=== PATIENT | male | born 1935 | race Caucasian/White ===

== ENCOUNTER → 2016-10-16 | Outpatient (CLI) | payer MEDICARE, MEDICAID | LOC: OD 11:56 | PROVIDERS: ATTEND Family Medicine | DX: M54.5 Low back pain (principal); M51.36 Other intervertebral disc degeneration, lumbar region | CPT/HCPCS: 72110; 74000 ==

== ENCOUNTER 2020-04-19 15:39 | Emergency (ER) | payer MEDICARE, MEDICAID ==
[2020-04-19 16:20] LABS: ABSOLUTE EOSINOPHILS # (AUTO) 0.1 10^3/uL (0.0-0.6); ABSOLUTE LYMPHOCYTES (AUTO) 0.8 10^3/uL (0.5-4.7); ABSOLUTE MONOCYTES (AUTO) 0.5 10^3/uL (0.1-1.4); ABSOLUTE NEUT (AUTO) 3.3 10^3/uL (1.7-8.2); BASOPHILS % (AUTO) 0.6 % (0-2); EOSINOPHILS % (AUTO) 2.9 % (0-6); HEMATOCRIT 28.8 % (37.9-51.0); HEMOGLOBIN 10.2 g/dL (13.5-17.0); LYMPHOCYTES % (AUTO) 16.3 % (13-45); MEAN CORPUSCULAR HEMOGLOBIN 36.1 pg (27.0-33.4); MEAN CORPUSCULAR HGB CONC 35.3 g/dL (32.0-36.0); MEAN CORPUSCULAR VOLUME 102 fl (80-97); MONOCYTES % (AUTO) 10.6 % (3-13); PLATELET COUNT 128 10^3/uL (150-450); RED BLOOD COUNT 2.82 10^6/uL (4.35-5.55); RED CELL DISTRIBUTION WIDTH 14.5 % (11.5-14.0); SEGMENTED NEUTROPHILS % (AUTO) 69.6 % (42-78); TOTAL CELLS COUNTED % (AUTO) 100 %; WHITE BLOOD COUNT 4.8 10^3/uL (4.0-10.5)
--- NOTE | 2020-04-19 16:42 | ER Document Report ---
ED General - General Chief Complaint: Urinary Problem Stated Complaint: URINATING BLOOD Time Seen by Provider: 04/19/20 16:10 Primary Care Provider: PRACHI DENNY MD [ACTIVE STAFF] - Follow up as needed Mode of Arrival: Ambulatory Information source: Patient Notes: Patient is an 85-year-old male coming in today with chief complaint of rosa hematuria. 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 Evidently things were going well. The nephrostomy tube was capped off by the patient's local urologist in [place]. Today around lunchtime, the patient started having rosa bright red hematuria. He had this for 4 episodes. He is not having any pain. He is not having any trouble passing his urine. No fevers or chills. No nausea or vomiting. He takes a half of an aspirin daily. TRAVEL OUTSIDE OF THE [place] IN LAST 30 DAYS: No Past Medical History - Social History Smoking Status: Unknown if Ever Smoked Family History: Reviewed & Not Pertinent Patient has homicidal ideation: No Review of Systems - Review of Systems Notes: Constitutional: No fevers. No chills. EENT: No eye redness. No eye pain. No ear pain. No sore throat. Cardiovascular: No chest pain. No palpitations. Respiratory: No cough. No shortness of breath. No respiratory distress. Gastrointestinal: No abdominal pain. No nausea, vomiting, or diarrhea. Genitourinary: Atraumatic. No lesions. No pain. No discharge. Positive for rosa hematuria Musculoskeletal: Atraumatic. No swelling. No deformities. Skin: No rash or lesions. Lymphatic: No swollen lymph nodes. Neurologic: No headache. No syncope. Psychiatric: No suicidal or homicidal ideation. Physical Exam - Notes Notes: General: Well-developed, well-nourished. In no acute distress. Non-toxic appearing. Cardiac: Well-perfused. Regular rate and rhythm. No murmurs, rubs, or gallops. Pulmonary: No respiratory distress. No cyanosis. Bilateral lung leach are clear to auscultation. Abdominal: Non-distended. Non-rigid. Bowels sounds are present in all four quadrants. No guarding or rebound. HEENT: Head is atraumatic. Conjunctivae not reddened. No tearing. PERRL. EOMI. Orbits atraumatic. No periorbital swelling or erythema. Oropharynx is without erythema, swelling, or exudates. Neck: Supple. No adenopathy. No meningismus. Dermatologic: Warm with good turgor. No rash. Atraumatic. Chest: Atraumatic. No chest wall tenderness to palpation. Musculoskeletal: Moves all extremities well. No range of motion deficits. no muscular or joint tenderness. No paraspinal muscle tenderness. no midline spinal tenderness or step-off. Genitourinary: Examination deferred Neurologic: No gross neurologic deficits. Psychiatric: Normal mood. Course - Re-evaluation Re-evalutation: 04/19/20 16:41 Patient has stable vital signs. His hemoglobin is 10. We will get a KUB to make sure the nephrostomy tube is still in place. We will touch base either with a local urologist or with the urologist up in [place]. 04/19/20 18:56 Patient is feeling fine. He is still passing small amounts of urine with blood intermingled. Hemoglobin is 10. Call out to his local urologist on-call service. 04/19/20 18:[address] Anguiano who is on-call for the [facility] urology group. He recommends following up tomorrow. We will put a note in the chart. - Laboratory Result Diagrams: 04/19/20 15:52 04/19/20 15:52 Laboratory results interpreted by me: 04/19/20 04/19/20 04/19/20 15:52 15:52 17:35 RBC 2.82 L Hgb 10.2 L Hct 28.8 L MCV 102 H MCH 36.1 H RDW 14.5 H Plt Count 128 L Sodium 136.9 L Potassium 3.5 L Chloride 97 L Carbon Dioxide 34 H BUN 21 H Direct Bilirubin 0.5 H Total Protein 6.1 L Albumin 3.4 L Urine Protein >=500 H Urine Glucose (UA) 50 H Urine Blood SMALL H Discharge - Discharge Clinical Impression: Hematuria Qualifiers: Hematuria type: unspecified type Qualified Code(s): R31.9 - Hematuria, unspecified Condition: Good Disposition: HOME, SELF-CARE Instructions: Hematuria ([facility]) Additional Instructions: Please call Dr. Brush's office first thing in the morning. I spoke with Dr. Anguiano who thinks that they should be able to get you in tomorrow. If you get worse, return to emergency department Referrals: PRACHI DENNY MD [ACTIVE STAFF] - Follow up as needed
[2020-04-19 16:45] LABS: ALBUMIN 3.4 g/dL (3.5-5.0); ALKALINE PHOSPHATASE 74 U/L (38-126); ANION GAP 6 (5-19); ASPARTATE AMINO TRANSFERASE 26 U/L (17-59); BILIRUBIN,DIRECT 0.5 mg/dL (0.0-0.4); BILIRUBIN,TOTAL 0.6 mg/dL (0.2-1.3); BLOOD UREA NITROGEN 21 mg/dL (7-20); CARBON DIOXIDE 34 mmol/L (22-30); CHLORIDE 97 mmol/L (98-107); GLUCOSE 107 mg/dL (75-110); POTASSIUM 3.5 mmol/L (3.6-5.0); TOTAL PROTEIN 6.1 g/dL (6.3-8.2)
--- NOTE | 2020-04-19 17:02 | RADIOLOGY REPORT (SQ) ---
EXAM DESCRIPTION: KUB/ABDOMEN (SINGLE VIEW) IMAGES COMPLETED DATE/TIME: 04/19/2020 4:51 pm REASON FOR STUDY: check nephrostomy tube right side COMPARISON: None. NUMBER OF VIEWS: One view. TECHNIQUE: Supine radiographic image of the abdomen acquired. LIMITATIONS: None. FINDINGS: BOWEL GAS PATTERN: Normal bowel gas pattern. No dilated loops. CALCIFICATIONS: No suspicious calcifications. SOFT TISSUES: No gross mass or suggestion of organomegaly. HARDWARE: Right-sided percutaneous nephrostomy tube appears in expected location. Double-J ureteral stent also appears in expected location. Surgical clips overlie left hemiabdomen. BONES: No acute bony abnormality. Evidence of prior left femur fracture with dynamic intramedullary mc fixation hardware. Bilateral osteoarthritic change. Lumbar spondylosis. OTHER: Vascular calcifications. IMPRESSION: Right-sided percutaneous nephrostomy catheter and double-J ureteral stent appear in expe cted location on the frontal projection. TECHNICAL DOCUMENTATION: JOB ID: [id number] 2010 [employer]- All Rights Reserved Reading location - IP/workstation name: [email or web address]
[2020-04-19 17:34] LABS: INTERNATIONAL RATION (INR) 0.99; PROTHROMBIN TIME 13.3 SEC (11.4-15.4)
[2020-04-19 18:12] LABS: APPEARANCE,URINE CLOUDY; BILIRUBIN,URINE NEGATIVE (NEGATIVE); COLOR,URINE AMBER; GLUCOSE, URINE 50 mg/dL (NEGATIVE); KETONES,URINE NEGATIVE (NEGATIVE); LEUKOCYTE ESTERASE,URINE NEGATIVE (NEGATIVE); NITRITE,URINE NEGATIVE (NEGATIVE); PROTEIN,URINE >=500 mg/dL (NEGATIVE); URINE SPECIFIC GRAVITY 1.028; UROBILINOGEN,URINE NEGATIVE mg/dL (<2.0)
[2020-04-19 19:20] VITALS: BP 116/60
== END 2020-04-19 19:20 | disposition home or self-care (01) ==
LOC: ER 15:39
DX: R31.9 Hematuria, unspecified (principal); R39.198 Other difficulties with micturition; Z98.890 Other specified postprocedural states
CPT/HCPCS: 36415; 74018; 80053; 81001; 85025; 85610; 99284

== ENCOUNTER 2020-04-21 17:25 | Emergency (ER) | payer MEDICARE, MEDICAID ==
--- NOTE | 2020-04-21 18:23 | ER Document Report ---
ED Medical Screen (RME) - General Chief Complaint: Blood in Catheter Stated Complaint: URINARY ISSUES Time Seen by Provider: 04/21/20 18:15 Mode of Arrival: Wheelchair Information source: Patient Notes: 85-year-old male patient presents to the emergency department passing blood clots in his Brown bag. Patient reports Brown was placed yesterday at his urologist office. He is not sure why the Brown was placed. He does report recently having a nephrostomy tube that was removed. He was recently seen in this emergency department for hematuria. Patient reports he feels great has not had fever, chills or any other complaints. Exam deferred until patient is in a room however patient is alert, oriented and there is no acute distress noted. I have greeted and performed a rapid initial assessment of this patient. A comprehensive ED assessment and evaluation of the patient, analysis of test results and completion of the medical decision making process will be conducted by additional ED providers. I have specifically instructed the patient or family members with the patient to immediately return to any nursing staff should anything change in the patient's condition or with their chief complaint. TRAVEL OUTSIDE OF THE [place] IN LAST 30 DAYS: No - Related Data Allergies/Adverse Reactions: niacin Allergy (Verified 04/21/20 18:13) Past Medical History - Social History Chew tobacco use (# tins/day): No Drug Abuse: Bath salts Physical Exam - Vital signs Vitals: Temp Pulse Resp BP Pulse Ox 98.7 F 99 18 111/59 L 97 04/21/20 17:42 04/21/20 17:42 04/21/20 17:42 04/21/20 17:42 04/21/20 17:42 Course - Vital Signs Vital signs: Temp Pulse Resp BP Pulse Ox 98.7 F 99 18 111/59 L 97 04/21/20 17:42 04/21/20 17:42 04/21/20 17:42 04/21/20 17:42 04/21/20 17:42
--- NOTE | 2020-04-21 21:33 | ER Document Report ---
ED General - General Chief Complaint: Blood in Catheter Stated Complaint: URINARY ISSUES Time Seen by Provider: 04/21/20 18:15 Mode of Arrival: Wheelchair TRAVEL OUTSIDE OF THE [place] IN LAST 30 DAYS: No - HPI Quality of pain: Other - See HPI Context: This is a 85-year-old male presenting to the emergency department complaining of rosa red blood in his Brown catheter bag. Patient is status post resection of a mass on his right kidney by his urologist with [facility] urology group. Patient has been doing fine after the resection of the mass and had a nephrostomy tube in. Patient states that the mass was removed approximately 2 weeks ago that the nephrostomy tube is coming out. Patient was seen yesterday at his urologist office. Patient states that he had a Brown catheter placed but he is not exactly sure why. Patient states his main concern is the rosa blood and the pain he is having in his pelvic area when he is not passing urine th rough the Brown bag. Patient states that home health nurse was able to give him some relief earlier today by irrigating his Brown tube. Patient localizes the pain to his lower pelvis in the region of his bladder, rated at its worst as a 4 out of 5 but states he is not having any pain now. Patient describes the pain as aching. Patient denies fever, chills, back pain, shortness of breath, chest pain, upper abdominal pain. Patient denies loss of sense of taste or sense of smell. Patient denies history of Covid 19 infection or known exposure to Covid 19+ patients or patients under investigation for Covid. Associated symptoms: Other - See HPI Exacerbated by: Other - See HPI Relieved by: Other - See HPI - Related Data Allergies/Adverse Reactions: niacin Allergy (Verified 04/21/20 18:13) Past Medical History - General Information source: Patient - Social History Smoking Status: Current Every Day Smoker Chew tobacco use (# tins/day): No Drug Abuse: Bath salts Family History: Reviewed & Not Pertinent Patient has homicidal ideation: No Past Surgical History: Reports: Hx Kidney (Renal Surgery), Other - Renal mass resection Review of Systems - Review of Systems Constitutional: No symptoms reported EENT: No symptoms reported Cardiovascular: No symptoms reported Respiratory: No symptoms reported Gastrointestinal: No symptoms reported Genitourinary: Hematuria Male Genitourinary: Other - Pelvic pain Musculoskeletal: No symptoms reported Skin: No symptoms reported Hematologic/Lymphatic: No symptoms reported Neurological/Psychological: No symptoms reported -: Yes All other systems reviewed and negative Physical Exam - Vital signs Vitals: Temp Pulse Resp BP Pulse Ox 98.7 F 99 18 111/59 L 97 04/21/20 17:42 04/21/20 17:42 04/21/20 17:42 04/21/20 17:42 04/21/20 17:42 - Notes Notes: CONSTITUTIONAL [Vital signs reviewed, Patient appears comfortable, Alert and oriented X 3, Normal stature.] HEAD [Atraumatic, Normocephalic.] EYES [Eyes are normal to inspection, No discharge from eyes, Extraocular muscles intact, Sclera are normal, Conjunctiva are normal.] NECK [Normal ROM, No jugular venous distention, No meningeal signs, no carotid bruit.] RESPIRATORY CHEST [Chest is nontender, Breath sounds normal, No respiratory distress.] CARDIOVASCULAR [RRR, No murmurs, Normal S1 S2, No rub, No gallop.] ABDOMEN [Abdomen is nontender, No pulsatile masses, No other masses, Bowel sounds normal, No distension, No peritoneal signs, No hernias.] Brown catheter is seen emanating from the penile urethra is connected to a bag on the patient's right leg there is some bloody looking urine present in the bag there are no obvious clots seen. BACK [There is no CVA Tenderness, There is no tenderness to palpation, Normal inspection.] UPPER EXTREMITY [Inspection normal, No cyanosis, No clubbing, No edema, 2+ radial pulses.] LOWER EXTREMITY [Inspection normal, No cyanosis, No clubbing, No edema, No calf tenderness, 2+ femoral pulses.] NEURO [No focal motor deficits, No focal sensory deficits, Speech normal.] SKIN [Skin is warm, Skin is dry, Skin is normal color.] LYMPHATIC [No adenopathy in neck.] PSYCHIATRIC [Normal affect. ] Course - Re-evaluation Re-evalutation: 04/21/20 23:07 Patient is without complaint at this time. Results of ED MSE discussed with patient. Patient was started on doxycycline 2 days ago, however does not appear to be covering in terms of the urinary tract infection he now has. This MD is going to send urine culture, give the patient a dose of IV Rocephin here and put the patient on Omnicef 300 mg twice daily for 10 days. Patient was instructed to follow-up with his urologist tomorrow. All questions were answered prior to discharge. Emergency signs and symptoms, reasons to return to the emergency department discussed with patient. - Vital Signs Vital signs: Temp Pulse Resp BP Pulse Ox 98.7 F 99 18 111/59 L 97 04/21/20 17:42 04/21/20 17:42 04/21/20 17:42 04/21/20 17:42 04/21/20 17:42 - Laboratory Result Diagrams: 04/21/20 21:35 Laboratory results interpreted by me: 04/21/20 04/21/20 20:55 21:35 RBC 2.68 L Hgb 9.6 L Hct 27.5 L MCV 103 H MCH 35.9 H RDW 14.6 H Plt Count 147 L Urine Protein 100 H Urine Blood LARGE H Urine Nitrite POSITIVE H Ur Leukocyte Esterase TRACE H Urine Ascorbic Acid 20 H Discharge - Discharge Clinical Impression: UTI (urinary tract infection) Qualifiers: Urinary tract infection type: site unspecified Hematuria presence: with hematuria Qualified Code(s): N39.0 - Urinary tract infection, site not specified; R31.9 - Hematuria, unspecified Condition: Stable Disposition: HOME, SELF-CARE Additional Instructions: Follow-up with your urologist on 04/22/2020. Stop taking doxycycline. Start taking cefdinir as prescribed for your urinary tract infection. Return to the Emergency Department without delay if any worse. HOME CARE INSTRUCTIONS & INFORMATION: Thank you for choosing us for your me dical needs. We hope you're satisfied with the care you received. After you leave, you must properly care for your problem and, at the same time, observe its progress. Any condition can change. Some illnesses can change rapidly over hours or days. If your condition worsens, return to the Emergency Department or see your physician promptly. ABOUT YOUR X-RAYS AND EKG'S: If you had an EKG or X-rays taken, they have been read by the Emergency Physician. The X-rays and EKG's will also be read by a Radiologist or Analytical Data Miner within 24 hours. If discrepancies are noted, you will be notified by telephone. Please be certain the ED has a correct telephone number & address where you can be reached. Also, realize that some fractures or abnormalities do not show up on initial X-rays. If your symptoms continue, see your physician. ABOUT YOUR LABORATORY TEST: If you had laboratory tests, the results have been reviewed by the Emergency Physician. Some test results (for example cultures) may not be available for several days. You will be contacted if any test result shows you need additional treatment. Please be certain the ED has a correct telephone number and address where you can be reached. ABOUT YOUR MEDICATIONS: You will receive instructions on how to take your medicine on the prescription label you receive. Additional information may be provided by the Pharmacy. If you have questions afterwards, call the ED for clarification or further instructions. Some prescribed medications may cause drowsiness. Do not perform tasks such as driving a car or operating machinery without consulting your Pharmacist. If you feel you need a refill of pain medication, your condition will need re-evaluation. Please do not call for a refill of any medication. ABOUT YOUR SIGNATURE: Signature of this document acknowledges to followin. Understanding that you received emergency treatment and that you may be released before al medical problems are known or treated. Please be certain the ED has a correct phone number & address where you can be reached. 2. Acknowledgement that you will arrange for follow-up care as recommended. 3. Authorization for the Emergency Physician to provide information to your follow-up Physician in order to maximize your care. AT ANY TIME, IF YOUR SYMPTOMS CHANGE SIGNIFICANTLY OR WORSEN OR YOU DEVELOP NEW SYMPTOMS, RETURN TO THE EMERGENCY DEPARTMENT IMMEDIATELY FOR RE-EVALUATION. OUR GOAL IS TO PROVIDE EXCELLENT MEDICAL CARE! WE HOPE THAT WE HAVE MET YOUR EXPECTATIONS DURING YOUR EMERGENCY DEPARTMENT VISIT AND THAT YOU FEEL YOU HAVE RECEIVED EXCELLENT CARE! Urinary Tract Infection Your evaluation indicates that you have a urinary tract infection. This is due to germs growing in the bladder. This is a common problem. This infection usually responds quickly to antibiotics. Your antibiotic should be taken exactly as prescribed. Drink plenty of fluids -- three to four quarts a day. Occasionally, a bladder anesthetic will be prescribed to help stop the feeling of urgency until the antibiotic has a chance to clear the infection. This may cause your urine to be dark orange. Certain urine infections require a culture. If the doctor obtained a culture, the results will be back in two days. You should call to see if a change in treatment is needed. A repeat urinalysis after you finish treatment is often recommended. The physician will let you know if further testing is required. Call the doctor if you develop fever, chills, flank pain, inability to urinate, or blood in the urine. Prescriptions: Cefdinir 300 mg PO BID 10 Days #20 capsule
[2020-04-21 21:39] LABS: BILIRUBIN,URINE NEGATIVE (NEGATIVE); GLUCOSE, URINE NEGATIVE (NEGATIVE); KETONES,URINE NEGATIVE (NEGATIVE); LEUKOCYTE ESTERASE,URINE TRACE (NEGATIVE); NITRITE,URINE POSITIVE (NEGATIVE); PROTEIN,URINE 100 mg/dL (NEGATIVE); URINE SPECIFIC GRAVITY 1.017; UROBILINOGEN,URINE NEGATIVE mg/dL (<2.0)
[2020-04-21 21:40] LABS: APPEARANCE,URINE TURBID; COLOR,URINE RED
[2020-04-21 22:29] LABS: ABSOLUTE EOSINOPHILS # (AUTO) 0.1 10^3/uL (0.0-0.6); ABSOLUTE LYMPHOCYTES (AUTO) 1.1 10^3/uL (0.5-4.7); ABSOLUTE MONOCYTES (AUTO) 0.6 10^3/uL (0.1-1.4); ABSOLUTE NEUT (AUTO) 5.7 10^3/uL (1.7-8.2); BASOPHILS % (AUTO) 0.3 % (0-2); EOSINOPHILS % (AUTO) 1.4 % (0-6); HEMATOCRIT 27.5 % (37.9-51.0); HEMOGLOBIN 9.6 g/dL (13.5-17.0); LYMPHOCYTES % (AUTO) 14.4 % (13-45); MEAN CORPUSCULAR HEMOGLOBIN 35.9 pg (27.0-33.4); MEAN CORPUSCULAR VOLUME 103 fl (80-97); MONOCYTES % (AUTO) 8.1 % (3-13); PLATELET COUNT 147 10^3/uL (150-450); RED BLOOD COUNT 2.68 10^6/uL (4.35-5.55); RED CELL DISTRIBUTION WIDTH 14.6 % (11.5-14.0); SEGMENTED NEUTROPHILS % (AUTO) 75.8 % (42-78); TOTAL CELLS COUNTED % (AUTO) 100 %; WHITE BLOOD COUNT 7.5 10^3/uL (4.0-10.5)
[2020-04-21] MEDS ORDERED: SULFAMETHOXAZOLE/TRIMETHOPRIM 800-160 MG TABLET PO ONE (22:53)
[2020-04-21] MEDS ORDERED: CEFTRIAXONE 1 GM/D5W RTU 1 GM/50 ML RTUPB IV ONE (23:05)
[2020-04-21 23:56] VITALS: BP 104/45
== END 2020-04-22 00:05 | disposition home or self-care (01) ==
LOC: ER 17:25
DX: N39.0 Urinary tract infection, site not specified (principal); R31.0 Gross hematuria; F17.200 Nicotine dependence, unspecified, uncomplicated; F19.10 Other psychoactive substance abuse, uncomplicated; Z98.890 Other specified postprocedural states; Z88.8 Allergy status to other drugs, medicaments and biological substances
CPT/HCPCS: 99284; 96365; 87086; 85025; 81001; J0696

== ENCOUNTER 2020-04-22 08:34 | Emergency (ER) | payer MEDICARE, MEDICAID ==
--- NOTE | 2020-04-22 10:41 | ER Document Report ---
ED GI/ - General Chief Complaint: Blood in Catheter Stated Complaint: BLOOD IN URINE Time Seen by Provider: 04/22/20 09:12 Notes: Patient is an 85-year-old male who presents to the emergency department with a chief complaint of blood in his urinary catheter. Patient was seen last night here in the emergency department and was switched over to Omnicef, doxycycline. He has not taken his first dose of Omnicef. He did receive Rocephin. Patient states that his urologist is Dr. Brush in [place]. He had a mass on his right kidney. He had a resection of the mask and the nephrostomy tube. This was about 2 weeks ago. TRAVEL OUTSIDE OF THE [place] IN LAST 30 DAYS: No - Related Data Allergies/Adverse Reactions: niacin Allergy (Verified 04/21/20 18:13) Past Medical History - Social History Smoking Status: Unknown if Ever Smoked Chew tobacco use (# tins/day): No Frequency of alcohol use: None Drug Abuse: None Family History: Reviewed & Not Pertinent Past Surgical History: Reports: Hx Kidney (Renal Surgery), Other - Renal mass resection Review of Systems - Review of Systems Notes: REVIEW OF SYSTEMS: CONSTITUTIONAL : Denies recent illness. Denies recent unintentional weight loss. Denies fever, chills, or sweats. EENT: Denies eye, ear, throat, or mouth pain, discharge, or symptoms. Denies n michael or sinus congestion. CARDIOVASCULAR: Denies chest pain. RESPIRATORY: Denies shortness of breath, cough, congestion, difficulty breathing, or wheezing. GASTROINTESTINAL: Denies nausea, vomiting, and diarrhea. Denies abdominal pain. Denies constipation. GENITOURINARY: See HPI. MUSCULOSKELETAL: Denies neck and back pain. Denies joint pain or swelling. SKIN: Denies rash, itchiness, or lesions HEMATOLOGIC : Denies easy bruising or bleeding. LYMPHATIC: Denies swollen, painful, enlarged glands. NEUROLOGICAL: Denies no numbness or tingling denies weakness. Denies headache. Denies altered mental status. Denies alteration in speech. PSYCHIATRIC: Denies stress, anxiety, alteration in sleep patterns, or depression. All other systems reviewed and negative. Physical Exam - Vital signs Vitals: Temp 98.5 F 04/22/20 08:41 - Notes Notes: PHYSICAL EXAMINATION: GENERAL: Appears well, healthy, well-nourished, no acute distress. HEAD: Normocephalic, atraumatic. EYES: PERRL, conjunctiva normal, all extraocular movements intact, sclera nonicteric ENT: Moist mucous membranes. NECK: Supple, no noticeable swelling, redness, rash. Normal range of motion. LUNGS: Equal breath sounds bilaterally and clear to auscultation. No wheezes rales or rhonchi. CARDIOVASCULAR: S1-S2, regular rate, regular rhythm. Radial pulses 2+, normal. ABDOMEN: Normoactive bowel sounds. Soft, nontender, no guarding, no rebound tenderness, and no masses palpated. EXTREMITIES: Normal strength and range of motion, no pitting or edema. No cyanosis. NEUROLOGICAL: Moves all extremities upon command. Strength 5/5 in all extremities. PSYCH: Normal mood, normal affect. SKIN: Warm, dry. No rash, lesions, ulcerations noted. Normal skin turgor. URINARY: Brown catheter in place. Santosh blood noted. Course - Re-evaluation Re-evalutation: 04/22/20 12:[address] Brush's office. He was not there. He was at the [place] office this morning. He had just left, according to one of the marketing/sales person. I then called his cell phone and left a message. Will await a call back. 04/22/20 12:16 I was called by the radiologist status controller Dr. Nur. 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 Recommendations by the river pilot to call urology status controller at [facility]. 04/22/20 12:[address] Brush, he states that the patient needs an angio embolism. He is recommending an ED to ED transfer, but Dr. Brush is not the on-call urologist at this time. 04/22/20 12:31 Spoke with [facility]. Await callback from the on-call urologist, Dr. Anguiano. 04/22/20 13:58 [facility] called me back. They would like the patient to be rapid covid tested, but unfortunately according to our nursing inside sales supervisor, there are no rapid tests available. 04/22/20 14:17 Patient will go to [facility]. They will put him on the observation unit and testing for Covid there. 04/22/20 15:02 [facility] at bedside. Patient is stable for transport to [facility]. - Vital Signs Vital signs: Temp Pulse Resp BP Pulse Ox 98.5 F 109 H 118/84 96 04/22/20 08:43 04/22/20 08:43 04/22/20 08:43 04/22/20 08:43 - Laboratory Result Diagrams: 04/22/20 10:30 04/22/20 10:30 Laboratory results interpreted by me: 04/22/20 04/22/20 04/22/20 10:30 10:30 10:30 RBC 2.47 L Hgb 8.8 L Hct 25.5 L MCV 103 H MCH 35.8 H RDW 14.6 H Plt Count 132 L Lymph % (Auto) 7.0 L Seg Neutrophils % 85.4 H Potassium 3.5 L Carbon Dioxide 34 H Anion Gap 4 L Glucose 125 H Total Protein 5.8 L Albumin 3.1 L Urine Protein 100 H Urine Ketones TRACE H Urine Blood LARGE H Ur Leukocyte Esterase SMALL H Discharge - Discharge Clinical Impression: Hematuria Qualifiers: Hematuria type: unspecified type Qualified Code(s): R31.9 - Hematuria, uns pecified UTI (urinary tract infection) Qualifiers: Urinary tract infection type: site unspecified Hematuria presence: with hematuria Qualified Code(s): N39.0 - Urinary tract infection, site not specified Condition: Stable Disposition: [facility] Admitting Provider: Dr. Tobar
[2020-04-22 10:48] LABS: ABSOLUTE EOSINOPHILS # (AUTO) 0.1 10^3/uL (0.0-0.6); ABSOLUTE LYMPHOCYTES (AUTO) 0.6 10^3/uL (0.5-4.7); ABSOLUTE MONOCYTES (AUTO) 0.5 10^3/uL (0.1-1.4); ABSOLUTE NEUT (AUTO) 6.8 10^3/uL (1.7-8.2); BASOPHILS % (AUTO) 0.2 % (0-2); HEMATOCRIT 25.5 % (37.9-51.0); HEMOGLOBIN 8.8 g/dL (13.5-17.0); MEAN CORPUSCULAR HEMOGLOBIN 35.8 pg (27.0-33.4); MEAN CORPUSCULAR HGB CONC 34.6 g/dL (32.0-36.0); MEAN CORPUSCULAR VOLUME 103 fl (80-97); MONOCYTES % (AUTO) 6.4 % (3-13); PLATELET COUNT 132 10^3/uL (150-450); RED BLOOD COUNT 2.47 10^6/uL (4.35-5.55); RED CELL DISTRIBUTION WIDTH 14.6 % (11.5-14.0); SEGMENTED NEUTROPHILS % (AUTO) 85.4 % (42-78); TOTAL CELLS COUNTED % (AUTO) 100 %
[2020-04-22 11:04] LABS: APPEARANCE,URINE SLIGHTLY-CLOUDY; BILIRUBIN,URINE NEGATIVE (NEGATIVE); GLUCOSE, URINE NEGATIVE (NEGATIVE); KETONES,URINE TRACE mg/dL (NEGATIVE); LEUKOCYTE ESTERASE,URINE SMALL (NEGATIVE); NITRITE,URINE NEGATIVE (NEGATIVE); PROTEIN,URINE 100 mg/dL (NEGATIVE); URINE SPECIFIC GRAVITY 1.015; UROBILINOGEN,URINE NEGATIVE mg/dL (<2.0)
[2020-04-22 11:10] LABS: ALBUMIN 3.1 g/dL (3.5-5.0); ALKALINE PHOSPHATASE 72 U/L (38-126); ASPARTATE AMINO TRANSFERASE 18 U/L (17-59); BILIRUBIN,DIRECT 0.4 mg/dL (0.0-0.4); BILIRUBIN,TOTAL 0.5 mg/dL (0.2-1.3); BLOOD UREA NITROGEN 20 mg/dL (7-20); GLUCOSE 125 mg/dL (75-110); POTASSIUM 3.5 mmol/L (3.6-5.0); TOTAL PROTEIN 5.8 g/dL (6.3-8.2)
[2020-04-22 11:15] LABS: CARBON DIOXIDE 34 mmol/L (22-30); CHLORIDE 101 mmol/L (98-107)
[2020-04-22 11:18] LABS: ANION GAP 4 (5-19)
--- NOTE | 2020-04-22 12:41 | RADIOLOGY REPORT (SQ) ---
EXAM DESCRIPTION: CT ABD/PELVIS WITH IV ONLY IMAGES COMPLETED DATE/TIME: 04/22/2020 12:00 pm REASON FOR STUDY: hematuria COMPARISON: None. TECHNIQUE: CT scan of the abdomen and pelvis performed using helical scanning technique with dynamic intravenous contrast injection. No oral contrast. Images reviewed with lung, soft tissue, and bone windows. Reconstructed coronal and sagittal MPR images reviewed. Delayed images for evaluation of the urinary system also acquired. All images stored on PACS. All CT scanners at this facility use dose modulation, iterative reconstruction, and/or weight based d osing when appropriate to reduce radiation dose to as low as reasonably achievable (ALARA). [facility]: Dose Right [facility]: CareDose [facility]: Dose Right [facility]: Teradose 4D [facility]: Mendix CONTRAST TYPE AND DOSE: contrast/concentration: Isovue 350.00 mmol/ml; Total Contrast Delivered: 89. 0 ml; Total Saline Delivered: 69.9 ml RENAL FUNCTION: BUN 21, creatinine 0.96 RADIATION DOSE: CT Rad equipment meets quality standard of care and radiation dose reduction techniq ues were employed. CTDIvol: 6.4 - 8.9 mGy. DLP: 768 mGy-cm.. LIMITATIONS: None. FINDINGS: LOWER CHEST: Right basilar atelectasis. LIVER: Hepatic steatosis SPLEEN: Normal size. No focal lesions. PANCREAS: No masses. No significant calcifications. No adjacent inflammation or peripancreatic fluid collections. Pancreatic duct not dilated. GALLBLADDER: Gallstones. ADRENAL GLANDS: No significant masses or asymmetry. RIGHT KIDNEY AND URETER: Enhancing 1.5 x 2.5 x 2.2 cm lesion in the lower pole the right kidney. 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 Mild surrounding perinephric stranding. No significant calcifications. Double-J ureteral stent is in place. No hydronephrosis. LEFT KIDNEY AND URETER: No solid masses. No significant calcifications. No hydronephrosis or hydr oureter. AORTA AND VESSELS: Prior aortobifemoral bypass graft. RETROPERITONEUM: No retroperitoneal adenopathy, hemorrhage or masses. BOWEL AND PERITONEAL CAVITY: No masses or inflammatory changes. No free fluid or peritoneal masses. APPENDIX: Normal. PELVIS: Brown catheter is in place. ABDOMINAL WALL: No masses. No hernias. BONES: No significant or acute findings. OTHER: No other significant finding. IMPRESSION: 1.5 x 2.5 x 2.2 cm enhancing lesion in the right kidney which washes out on delayed imag es. This is most consistent with pseudoaneurysm. Mild surrounding perinephric stranding. COMMENT: This report was called to DUNG JAMES BILLING ASSISTANT at12:35 on 04/22/2020. TECHNICAL DOCUMENTATION: JOB ID: [id number] Quality ID # [id number]: Final reports with documentation of one or more dose reduction techniques (e.g., Au tomated exposure control, adjustment of the mA and/or kV according to patient size, use of iterative reconstruction technique) 2010 [employer]- All Rights Reserved Reading location - IP/workstation name: [email or web address]
[2020-04-22] MEDS ORDERED: CEFTRIAXONE INJ 1000 MG VIAL IV ONE (13:39)
[2020-04-22 13:42] VITALS: BP 118/84
[2020-04-22] MEDS ORDERED: NORMAL SALINE 1000 ML 1,000 ML IV PRN (13:44)
== END 2020-04-22 15:20 | disposition short-term general hospital (02) ==
LOC: ER 08:34
DX: N39.0 Urinary tract infection, site not specified (principal); R31.9 Hematuria, unspecified; T85.9XXA Unspecified complication of internal prosthetic device, implant and graft, initial encounter; N28.89 Other specified disorders of kidney and ureter; Z88.8 Allergy status to other drugs, medicaments and biological substances
CPT/HCPCS: 99285; 96365; 36415; 85025; 80053; 81001; 74177; J0696; J7030